=== PATIENT | male | born 1965 | race Caucasian/White ===

== ENCOUNTER 2016-12-19 21:34 | Emergency (ER) | payer OTHER ==
[2016-12-19] MEDS ORDERED: MORPHINE SULFATE 4 MG INJ IV ONE (21:50)
[2016-12-19] MEDS ORDERED: Sodium Chloride 0.9% 1000 ML 1,000 ML IV STA (21:50)
[2016-12-19] MEDS ORDERED: Zofran 4 MG/2 ML VIAL IV ONE (21:50)
[2016-12-19] MEDS ORDERED: Pepcid 20 MG VIAL IV ONE ×2 (21:50→21:59)
[2016-12-19] MEDS ORDERED: BENADRYL 50 MG/ML IV ONE (21:50)
[2016-12-19] MEDS ORDERED: PROTONIX 40 MG IV IV ONE ×2 (21:50→21:59)
--- NOTE | 2016-12-19 21:50 | ERPHSYRPT ---
- History of Present Illness Time Seen by Provider: 12/19/16 21:45 Historian: patient Exam Limitations: no limitations Physician History: 51 yr old male with back pain for three days and abd pain for one day ; no vomiting, no trauma, no diarrhea , also unable to urinate no hx prior surgeries has general abd tenderness , distension, and increased bowel sounds on exam.no prior prostate problemspt also reports left arm tingling earlier today none now , no CP now but will check EKG and trop. Timing/Duration: today Activities at Onset: none Quality: sharpness Abdominal Pain Onset Location: generalized abdomen, flank Pain Radiation: flank, back Severity of Pain-Max: moderate Severity of Pain-Current: moderate Modifying Factors: Improves With: nothing Previous symptoms: no prior history Allergies/Adverse Reactions: No Known Drug Allergies Allergy (Verified 12/19/16 21:50) Home Medications: No Home Meds 1 ea UD 12/19/16 [History] - Review of Systems Constitutional: No Fever, No Chills Eyes: No Symptoms Ears, Nose, & Throat: No Symptoms Respiratory: No Cough, No Dyspnea Cardiac: No Chest Pain, No Edema, No Syncope Abdominal/Gastrointestinal: Abdominal Pain, Nausea, No Vomiting, No Diarrhea Genitourinary Symptoms: Dysuria, Urgency, Urinary Retention Musculoskeletal: Back Pain, No Neck Pain Skin: No Rash Neurological: No Dizziness, No Focal Weakness, No Sensory Changes Psychological: No Symptoms Endocrine: No Symptoms Hematologic/Lymphatic: No Symptoms Immunological/Allergic: No Symptoms All Other Systems: Reviewed and Negative - Past Medical History Pertinent Past Medical History: Yes Neurological History: No Pertinent History Cardiac History: Hypertension Respiratory History: No Pertinent History Endocrine Medical History: No Pertinent History Musculoskeletal History: Osteoarthritis Other Medical History: psoriasis - Past Surgical History Past Surgical History: No - Nursing Vital Signs Nursing Vital Signs: Initial Vital Signs Temperature 98.3 F Temperature Source Oral Pulse Rate 104 Respiratory Rate 16 Blood Pressure [Right Arm] 123/62 Pain Intensity 6 - Physical Exam General Appearance: no apparent distress, alert Eye Exam: PERRL/EOMI, eyes nml inspection Ears, Nose, Throat Exam: normal ENT inspection, pharynx normal, moist mucous membranes Neck Exam: normal inspection, non-tender, supple, full range of motion Respiratory Exam: normal breath sounds, lungs clear, No respiratory distress Cardiovascular Exam: regular rate/rhythm, normal heart sounds Gastrointestinal/Abdomen Exam: tenderness, distention, guarding, No mass, No rebound, No hernia Rectal Exam: deferred Back Exam: normal inspection, normal range of motion, No CVA tenderness, No vertebral tenderness Extremity Exam: normal inspection, normal range of motion, pelvis stable Neurologic Exam: alert, oriented x 3, cooperative, normal mood/affect, nml cerebellar function, sensation nml, No motor deficits Skin Exam: normal color, warm, dry SpO2 Interpretation: normal Oxygen Delivery: Room Air - Course Nursing assessment & vital signs reviewed: Yes EKG Interpreted by Me: Sinus Rhythm, NORMAL AXIS, Non-specific ST Changes Ordered Tests: Active Orders 24 hr Category Date Time Status Cath for Specimen-Straight STAT Care 12/19/16 21:50 Active EKG-ER Only STAT Care 12/19/16 21:50 Active IV Insertion STAT Care 12/19/16 21:50 Active IV Insertion-2nd Peripheral STAT Care 12/19/16 22:23 Active NPO (ED) STAT Care 12/19/16 21:50 Active Pulse Oximetry (ED) STAT Care 12/19/16 22:23 Active ABDOMEN AND PELVIS W/0 CONTRAS [CT] Stat Exams 12/19/16 21:51 Taken CHEST 1 VIEW (PORTABLE) Stat Exams 12/19/16 23:24 Taken AMYLASE Stat Lab 12/19/16 22:03 Completed BLOOD CULTURE Stat Lab 12/19/16 22:44 Received CBC W DIFF Stat Lab 12/19/16 22:03 Completed CK-Creatinine Phosphokinase Stat Lab 12/19/16 21:50 Completed CMP Stat Lab 12/19/16 22:03 Completed CULTURE,URINE Stat Lab 12/19/16 22:28 Received LIPASE Stat Lab 12/19/16 22:03 Completed Lactic Acid Stat Lab 12/19/16 22:00 Completed Occult Blood,Stool Other Stat Lab 12/19/16 22:15 Completed TROPONIN Stat Lab 12/19/16 22:03 Completed UA W/ MICROSCOPIC Stat Lab 12/19/16 22:07 Completed VENOUS BLOOD GAS Stat Lab 12/19/16 22:23 Completed Medication Summary Generic Name Dose Route Start Last Admin Trade Name Freq PRN Reason Stop Dose Admin Sodium Chloride 1,000 mls @ 999 mls/hr 12/19/16 22:30 12/19/16 23:17 Sodium Chloride 0.9% 1000 Ml IV 12/20/16 01:30 999 mls/hr .Q1H1M JORGE Administration Discontinued Medications Generic Name Dose Route Start Last Admin Trade Name Denny PRN Reason Stop Dose Admin Diphenhydramine HCl 25 mg 12/19/16 21:50 12/19/16 22:10 Benadryl 50 Mg/Ml IV 12/19/16 21:51 25 mg STAT ONE Administration Diphenhydramine HCl Confirm 12/19/16 21:59 Benadryl 50 Mg/Ml Administered 12/19/16 22:00 Dose 50 mg .ROUTE .STK-MED ONE Famotidine 20 mg 12/19/16 21:50 12/19/16 22:09 Pepcid 20 Mg Vial IV 12/19/16 21:51 20 mg STAT ONE Administration Famotidine Confirm 12/19/16 21:59 Pepcid 20 Mg Vial Administered 12/19/16 22:00 Dose 20 mg IV .STK-MED ONE Sodium Chloride 1,000 mls @ 999 mls/hr 12/19/16 21:50 12/19/16 22:04 Sodium Chloride 0.9% 1000 Ml IV 12/19/16 22:50 999 mls/hr .Q1H1M STA Administration Sodium Chloride Confirm 12/19/16 21:59 Sodium Chloride 0.9% 1000 Ml Administered 12/19/16 22:00 Dose 1,000 mls @ ud .ROUTE .STK-MED ONE Metronidazole 500 mg in 100 mls @ 200 mls/hr 12/19/16 22:21 12/19/16 23:17 Flagyl 500 Mg Ivpb IV 12/19/16 22:50 200 mls/hr STAT STA Administration Meropenem 1 g/ Sodium Chloride 100 mls @ 200 mls/hr 12/19/16 22:21 12/19/16 22:40 IV 12/19/16 22:50 200 mls/hr STAT ONE Administration Sodium Chloride Confirm 12/19/16 22:25 Sodium Chloride 0.9% 100 Ml Ivpb Administered 12/19/16 22:26 Dose 100 mls @ ud IV .STK-MED ONE Metronidazole Confirm 12/19/16 22:25 Flagyl 500 Mg Ivpb Administered 12/19/16 22:26 Dose 500 mg in 100 mls @ ud IV .STK-MED ONE Meropenem Confirm 12/19/16 22:25 Merrem 1 Gm Administered 12/19/16 22:26 Dose 1 g IV .STK-MED ONE Morphine Sulfate 4 mg 12/19/16 21:50 12/19/16 22:12 Morphine Sulfate 4 Mg Inj IV 12/19/16 21:51 4 mg STAT ONE Administration Morphine Sulfate Confirm 12/19/16 21:59 Morphine Sulfate 4 Mg Inj Administered 12/19/16 22:00 Dose 4 mg .ROUTE .STK-MED ONE Ondansetron HCl 4 mg 12/19/16 21:50 12/19/16 22:06 Zofran 4 Mg/2 Ml Vial IV 12/19/16 21:51 4 mg STAT ONE Administration Ondansetron HCl Confirm 12/19/16 21:59 Zofran 4 Mg/2 Ml Vial Administered 12/19/16 22:00 Dose 4 mg .ROUTE .STK-MED ONE Pantoprazole Sodium 40 mg 12/19/16 21:50 12/19/16 22:08 Protonix 40 Mg Iv IV 12/19/16 21:51 40 mg STAT ONE Administration Pantoprazole Sodium Confirm 12/19/16 21:59 Protonix 40 Mg Iv Administered 12/19/16 22:00 Dose 40 mg IV .STK-MED ONE Lab/Rad Data: Laboratory Result Diagrams 12/19/16 22:03 12/19/16 22:03 Laboratory Results 12/19/16 12/19/16 12/19/16 Range/Units 22:23 22:15 22:07 WBC (4.0-10.5) K/mm3 RBC (4.1-5.6) M/mm3 Hgb (12.5-18.0) gm/dl Hct (42-50) % MCV (78-100) fl MCH (26-32) pg MCHC (32-36) g/dl RDW (11.5-14.0) % Plt Count (150-450) K/mm3 MPV (6-9.5) fl Gran % (36.0-66.0) % Lymphocytes % (24.0-44.0) % Monocytes % (0.0-12.0) % Eosinophils % (0.00-5.0) % Basophils % (0.0-0.4) % Basophils # (0-0.4) VBG pH 7.24 L* (7.32-7.42) VBG pCO2 at Pat Temp 49 (42-55) mm/Hg VBG pO2 at Pat Temp 23 L (25-40) mm/Hg VBG HCO3 21.0 L (22-28) meq/L VBG O2 Sat ([place]) 34.1 L (95-100) VBG Base Excess -6.8 L (-2.0-2.0) VBG Hemoglobin 16.8 VBG Carboxyhemoglobin 2.0 (0.0-6.9) % T HGB POC Potassium 5.6 H (3.5-5.1) Sodium (136-145) mEq/L Potassium (3.5-5.1) mEq/L Chloride (98-107) mEq/L Carbon Dioxide (21-32) mEq/L Anion Gap (5-15) MEQ/L BUN (9-20) mg/dL Creatinine (0.55-1.30) mg/dl Estimated GFR ML/MIN Glucose (70-110) MG/DL Lactic Acid (0.4-2.0) Calcium (8.5-10.1) mg/dL Total Bilirubin (0.2-1.0) mg/dL AST (15-37) U/L ALT (12-78) U/L Alkaline Phosphatase (46-116) U/L Creatine Kinase (39-308) U/L Troponin I (0.000-0.056) ng/ml Serum Total Protein (6.4-8.2) gm/dL Albumin (3.4-5.0) g/dL Amylase (25-115) U/L Lipase (73-393) U/L Ur Collection Type CATH Urine Color YELLOW (YELLOW) Urine Appearance CLOUDY (CLEAR) Urine pH 5.0 (5-6) Ur Specific [place] 1.020 (1.005-1.025) Urine Protein 30 (Negative) Urine Ketones NEGATIVE (NEGATIVE) Urine Blood 250 (0-5) Awais/ul Urine Nitrite NEGATIVE (NEGATIVE) Urine Bilirubin SMALL (NEGATIVE) Urine Urobilinogen NORMAL (0-1) mg/dL Ur Leukocyte Esterase TRACE (NEGATIVE) Urine Microscopic RBC 0-2 (0-2) /HPF Urine Microscopic WBC 2-5 (0-5) /HPF Ur Epithelial Cells MODERATE (FEW) /HPF Urine Bacteria FEW (NEGATIVE) /HPF Hyaline Casts 0-2 (0-2) /LPF Urine Glucose 50 (NEGATIVE) mg/dL Stool Occult Blood POSITIVE (Negative) Specimen Received 12/19/16 2200 12/19/16 12/19/16 12/19/16 Range/Units 22:03 22:03 22:00 WBC 24.3 H (4.0-10.5) K/mm3 RBC 5.24 (4.1-5.6) M/mm3 Hgb 16.7 (12.5-18.0) gm/dl Hct 47.8 (42-50) % MCV 91.2 (78-100) fl MCH 31.9 (26-32) pg MCHC 34.9 (32-36) g/dl RDW 12.8 (11.5-14.0) % Plt Count 308 (150-450) K/mm3 MPV 12.7 H (6-9.5) fl Gran % 79.3 H (36.0-66.0) % Lymphocytes % 12.6 L (24.0-44.0) % Monocytes % 7.4 (0.0-12.0) % Eosinophils % 0.4 (0.00-5.0) % Basophils % 0.3 (0.0-0.4) % Basophils # 0.07 (0-0.4) VBG pH (7.32-7.42) VBG pCO2 at Pat Temp (42-55) mm/Hg VBG pO2 at Pat Temp (25-40) mm/Hg VBG HCO3 (22-28) meq/L VBG O2 Sat ([place]) (95-100) VBG Base Excess (-2.0-2.0) VBG Hemoglobin VBG Carboxyhemoglobin (0.0-6.9) % T HGB POC Potassium (3.5-5.1) Sodium 137 (136-145) mEq/L Potassium 5.5 H (3.5-5.1) mEq/L Chloride 100 (98-107) mEq/L Carbon Dioxide 21.1 (21-32) mEq/L Anion Gap 21.4 H (5-15) MEQ/L BUN 56 H (9-20) mg/dL Creatinine 6.14 H (0.55-1.30) mg/dl Estimated GFR 10 ML/MIN Glucose 190 H (70-110) MG/DL Lactic Acid 1.5 (0.4-2.0) Calcium 10.3 H (8.5-10.1) mg/dL Total Bilirubin 0.80 (0.2-1.0) mg/dL AST 31 (15-37) U/L ALT 40 (12-78) U/L Alkaline Phosphatase 95 (46-116) U/L Creatine Kinase (39-308) U/L Troponin I < 0.017 (0.000-0.056) ng/ml Serum Total Protein 8.4 H (6.4-8.2) gm/dL Albumin 5.0 (3.4-5.0) g/dL Amylase 59 (25-115) U/L Lipase 185 (73-393) U/L Ur Collection Type Urine Color (YELLOW) Urine Appearance (CLEAR) Urine pH (5-6) Ur Specific [place] (1.005-1.025) Urine Protein (Negative) Urine Ketones (NEGATIVE) Urine Blood (0-5) Awais/ul Urine Nitrite (NEGATIVE) Urine Bilirubin (NEGATIVE) Urine Urobilinogen (0-1) mg/dL Ur Leukocyte Esterase (NEGATIVE) Urine Microscopic RBC (0-2) /HPF Urine Microscopic WBC (0-5) /HPF Ur Epithelial Cells (FEW) /HPF Urine Bacteria (NEGATIVE) /HPF Hyaline Casts (0-2) /LPF Urine Glucose (NEGATIVE) mg/dL Stool Occult Blood (Negative) Specimen Received 12/19/16 Range/Units 21:50 WBC (4.0-10.5) K/mm3 RBC (4.1-5.6) M/mm3 Hgb (12.5-18.0) gm/dl Hct (42-50) % MCV (78-100) fl MCH (26-32) pg MCHC (32-36) g/dl RDW (11.5-14.0) % Plt Count (150-450) K/mm3 MPV (6-9.5) fl Gran % (36.0-66.0) % Lymphocytes % (24.0-44.0) % Monocytes % (0.0-12.0) % Eosinophils % (0.00-5.0) % Basophils % (0.0-0.4) % Basophils # (0-0.4) VBG pH (7.32-7.42) VBG pCO2 at Pat Temp (42-55) mm/Hg VBG pO2 at Pat Temp (25-40) mm/Hg VBG HCO3 (22-28) meq/L VBG O2 Sat ([place]) (95-100) VBG Base Excess (-2.0-2.0) VBG Hemoglobin VBG Carboxyhemoglobin (0.0-6.9) % T HGB POC Potassium (3.5-5.1) Sodium (136-145) mEq/L Potassium (3.5-5.1) mEq/L Chloride (98-107) mEq/L Carbon Dioxide (21-32) mEq/L Anion Gap (5-15) MEQ/L BUN (9-20) mg/dL Creatinine (0.55-1.30) mg/dl Estimated GFR ML/MIN Glucose (70-110) MG/DL Lactic Acid (0.4-2.0) Calcium (8.5-10.1) mg/dL Total Bilirubin (0.2-1.0) mg/dL AST (15-37) U/L ALT (12-78) U/L Alkaline Phosphatase (46-116) U/L Creatine Kinase 774 H (39-308) U/L Troponin I (0.000-0.056) ng/ml Serum Total Protein (6.4-8.2) gm/dL Albumin (3.4-5.0) g/dL Amylase (25-115) U/L Lipase (73-393) U/L Ur Collection Type Urine Color (YELLOW) Urine Appearance (CLEAR) Urine pH (5-6) Ur Specific [place] (1.005-1.025) Urine Protein (Negative) Urine Ketones (NEGATIVE) Urine Blood (0-5) Awais/ul Urine Nitrite (NEGATIVE) Urine Bilirubin (NEGATIVE) Urine Urobilinogen (0-1) mg/dL Ur Leukocyte Esterase (NEGATIVE) Urine Microscopic RBC (0-2) /HPF Urine Microscopic WBC (0-5) /HPF Ur Epithelial Cells (FEW) /HPF Urine Bacteria (NEGATIVE) /HPF Hyaline Casts (0-2) /LPF Urine Glucose (NEGATIVE) mg/dL Stool Occult Blood (Negative) Specimen Received - Progress Progress: improved, re-examined Progress Note: 12/19/16 23:57 Discussed with pt and family and Khanh Reyes Hospitalist at [facility] and they accept transfer for renal tx and w/u of sepsis; 12/20/16 00:00 the pt was arranged for transfer prior to second lactaTE, but first lactate was normal. ; but HR improved some with IVF to low 100s. 12/20/16 00:01 pt required second IV, cultures and obs in ER for critical care as was tachy. Discussed with Dr.: Other (khanh reyes at [facility]) Will see patient in: hospital (full admit) Counseled pt/family regarding: lab results, diagnosis, need for follow-up, rad results - Departure Time of Disposition: 23:58 Departure Disposition: Transfer Clinical Impression: Renal failure, Sepsis Condition: Good Critical Care Time: Yes Critical Care Time(excluding separately billable procedures): 30-74 minutes
[2016-12-19] MEDS ORDERED: MORPHINE SULFATE 4 MG INJ ONE (21:59)
[2016-12-19] MEDS ORDERED: Sodium Chloride 0.9% 1000 ML 1,000 ML ONE (21:59)
[2016-12-19] MEDS ORDERED: BENADRYL 50 MG/ML ONE (21:59)
[2016-12-19] MEDS ORDERED: Zofran 4 MG/2 ML VIAL ONE (21:59)
[2016-12-19 22:07] LABS: BASOPHIL % 0.3 % (0.0-0.4); Eosinophil % 0.4 % (0.00-5.0); Granulocytes % 79.3 % (36.0-66.0); Lymphocytes % 12.6 % (24.0-44.0); Mean Cell Volume 91.2 fl (78-100); Mean Corpuscular Hemoglobin 31.9 pg (26-32); Mean Platelet Volume 12.7 fl (6-9.5); Monocytes % 7.4 % (0.0-12.0); Platelet Count 308 K/mm3 (150-450); Red Blood Count 5.24 M/mm3 (4.1-5.6); Red Cell Distribution Width 12.8 % (11.5-14.0); White Blood Count 24.3 K/mm3 (4.0-10.5)
[2016-12-19 22:14] LABS: Collection Type CATH
[2016-12-19 22:15] LABS: ADD URINE CULTURE? NO (NO); Bacteria FEW /HPF (NEGATIVE); Bilirubin SMALL (NEGATIVE); Blood 250 Ery/ul (0-5); COMPLETE URINE MICROSCOPIC? YES; Epithelial Cells MODERATE /HPF (FEW); Glucose 50 mg/dL (NEGATIVE); Hyaline Casts 0-2 /LPF (0-2); Leukocyte Esterase TRACE (NEGATIVE)
[2016-12-19 22:19] LABS: ALKALINE PHOSPHATASE 95 U/L (46-116); ANION GAP 21.4 MEQ/L (5-15); BLOOD UREA NITROGEN 56 mg/dL (9-20); CHLORIDE 100 mEq/L (98-107); Carbon Dioxide 21.1 mEq/L (21-32); Glucose 190 MG/DL (70-110); LIPASE 185 U/L (73-393); Potassium 5.5 mEq/L (3.5-5.1); SGOT/AST 31 U/L (15-37); SGPT/ALT 40 U/L (12-78); SODIUM 137 mEq/L (136-145); TROPONIN < 0.017 ng/ml (0.000-0.056); Total Protein 8.4 gm/dL (6.4-8.2)
[2016-12-19] MEDS ORDERED: FLAGYL 500 MG IVPB 500 MG/100 ML BAG IV STA (22:21)
[2016-12-19] MEDS ORDERED: Merrem 1 GM 1 G in Sodium Chloride 100ML MINI-BAG PLUS 100 ML IV ONE (22:21)
[2016-12-19] MEDS ORDERED: FLAGYL 500 MG IVPB 500 MG/100 ML BAG IV ONE (22:25)
[2016-12-19] MEDS ORDERED: Sodium Chloride 0.9% 100 ML IVPB 100 ML IV ONE (22:25)
[2016-12-19] MEDS ORDERED: Merrem 1 GM IV ONE (22:25)
[2016-12-19] MEDS ORDERED: Sodium Chloride 0.9% 1000 ML 1,000 ML IV SCH (22:30)
[2016-12-19 22:35] LABS: VBG BASE EXCESS -6.8 (-2.0-2.0); VBG HEMOGLOBIN 16.8; VBG O2 SATURATION 34.1 (95-100); VBG POTASSIUM 5.6 (3.5-5.1); VBG pH 7.24 (7.32-7.42)
[2016-12-19] MEDS ORDERED: Sodium Chloride 0.9% 1000 ML 2,000 ML ONE (23:15)
[2016-12-19] MEDS ORDERED: Sodium Chloride 0.9% 1000 ML 1,000 ML IV ONE (23:15)
[2016-12-20 00:56] VITALS: BP 108/68; PULSE 96; O2SAT 95
--- NOTE | 2016-12-20 09:42 | XRAY ---
Indication: Sepsis. Comparison: None Portable chest demonstrates normal heart and lungs. Bony thorax intact.
--- NOTE | 2016-12-20 09:43 | XRAY ---
Indication: Lower abdominal and right flank pain. Difficulty urinating. Multiple contiguous axial images obtained through the abdomen and pelvis without contrast using renal stone protocol. Comparison: None Lung bases demonstrates minimal bibasilar dependent atelectasis. Heart is not enlarged. Partially visualized subcarinal and left infrahilar calcified nodes. 1 cm distal paraesophageal lymph node. No renal calculus or evidence for objective uropathy in either system. Noncontrasted stomach and bowel loops appear nonobstructed. Minimal scattered colonic diverticulosis without diverticulitis. Normal appendix. No free fluid/air. Solitary calcified splenic granuloma. Remaining liver, gallbladder, pancreas, spleen, adrenal glands, kidneys, ureters, and bladder appear unremarkable for noncontrast exam. Mild aortoiliac calcifications without AAA. Osseous structures intact with mild degenerative changes throughout the spine. Impression: 1. Negative for renal calculus or evidence for obstructive uropathy. 2. Minimal colonic diverticulosis without diverticulitis. 3. No acute intra-abdominal/pelvic abnormalities on this noncontrast exam. 4. Evidence for old granulomatous disease. Comment: Preliminary interpretation was made by [facility]. No discrepancy. CTDI 27.71
== END 2016-12-20 00:56 | disposition short-term general hospital (02) ==
LOC: ED 21:34
DX: N19 Unspecified kidney failure (principal); A41.9 Sepsis, unspecified organism
CPT/HCPCS: 36000; 36415; 71010; 74176; 80053; 81000; 82150; 82272; 82550; 82805; 83605; 83690; 84484; 85025; 87040; 87086; 93005; 96360; 96365; 96366; 96367; 96374; 96375; 99285; J1200; J2270; J2405; P9612

== ENCOUNTER 2017-05-30 18:09 | Emergency (ER) | payer OTHER ==
[2017-05-30] MEDS ORDERED: Zofran 4 MG/2 ML VIAL IV ONE (18:26)
[2017-05-30] MEDS ORDERED: Hydromorphone 1 mg/ml Ampule IV ONE (18:26)
[2017-05-30] MEDS ORDERED: Sodium Chloride 0.9% 1000 ML 1,000 ML IV STA (18:26)
--- NOTE | 2017-05-30 18:30 | ERPHSYRPT ---
- History of Present Illness Historian: patient Exam Limitations: no limitations Patient Subjective Stated Complaint: PT STATES HIS STOMACH HAS BEEN HURTING OFF AND ON ALL DAY, ALSO REPORTS FLANK PAIN AND TROUBLE URINATING. STATES HE CAN PEE BUT IT TAKES A WHILE TO START HIS STREAM. PT REPORTS KIDNEY PROBLEMS AND IS CONCERNED THAT HIS KIDNEYS ARE "SHUTTING DOWN". REPORTS HE DRANK SOME RUM LAST NIGHT AND IS WORRIED THAT MIGHT BE RELATED TO HIS S/S. Triage Nursing Assessment: PT IS AOX3, PUPILS PERRL, RESPS EASY AND NON LABORED , LUNGS SOUND CLEAR AND EQUAL THROUGHOUT, RADIAL PULSES BOUNDING, ABD IS FIRM AND ROUND, TENDER WITH PALP TO THE RLQ, ABD PAIN RADIATES TO BILAT FLANK, DIFFCULTY UPON URINATION - TAKES LONG TO START STREAM OF URINE, PT SKIN APPEARS RAQUEL AND TIGHT. PAIN WORSENED WITH POSITION CHANGE - DIFFICULTY FINDING POSITION OF COMFORT. PT RESTLESS. Hx Tetanus, Diphtheria Vaccination/Date Given: No Hx Influenza Vaccination/Date Given: No Hx Pneumococcal Vaccination/Date Given: No Immunizations Up to Date: Yes <KATALINA COLEMAN - Last Filed: 05/30/17 18:42> <ERICKA NOE - Last Filed: 05/30/17 19:59> - History of Present Illness Time Seen by Provider: 05/30/17 18:27 Physician History: mild to mod off and on lower abdominal cramps rad to back today, no injury, no fever, no NV, pt is ambulatory (KATALINA COLEMAN) Allergies/Adverse Reactions: No Known Drug Allergies Allergy (Verified 12/19/16 21:50) Home Medications: No Home Meds [No Home Meds] 1 [facility] 12/19/16 [History] - Review of Systems Constitutional: No Fever Eyes: No Symptoms Ears, Nose, & Throat: No Symptoms Respiratory: No Symptoms Cardiac: No Symptoms Abdominal/Gastrointestinal: Abdominal Pain, No Vomiting Genitourinary Symptoms: Hesitancy Musculoskeletal: Back Pain Skin: No Symptoms Neurological: No Dizziness Psychological: No Symptoms <KATALINA COLEMAN - Last Filed: 05/30/17 18:42> - Past Medical History Pertinent Past Medical History: Yes Neurological History: No Pertinent History Cardiac History: Hypertension Respiratory History: No Pertinent History Endocrine Medical History: No Pertinent History Musculoskeletal History: Osteoarthritis History: Renal Disease Other Medical History: psoriasis - Past Surgical History Past Surgical History: No - Social History Smoking Status: Current every day smoker Drug Use: none Patient Lives Alone: No <KATALINA COLEMAN - Last Filed: 05/30/17 18:42> - Physical Exam General Appearance: no apparent distress Eye Exam: PERRL/EOMI Ears, Nose, Throat Exam: moist mucous membranes Neck Exam: normal inspection Respiratory Exam: normal breath sounds Cardiovascular Exam: bradycardia Gastrointestinal/Abdomen Exam: soft, tenderness, No rebound Back Exam: muscle spasm, No vertebral tenderness Extremity Exam: normal range of motion Neurologic Exam: alert, oriented x 3, cooperative Skin Exam: normal color, warm, dry SpO2 Interpretation: normal SpO2: 97 Oxygen Delivery: Room Air <KATALINA COLEMAN - Last Filed: 05/30/17 18:42> - Nursing Vital Signs Nursing Vital Signs: Initial Vital Signs Temperature 97.9 F 05/30/17 18:13 Pulse Rate 125 H 05/30/17 18:13 Respiratory Rate 20 05/30/17 18:13 Blood Pressure 158/91 05/30/17 18:13 O2 Sat by Pulse Oximetry 97 05/30/17 18:13 Pain Scale Pain Intensity 5 - Course EKG Interpreted by Me: RATE, Sinus Rhythm, Sinus Tach, NORMAL AXIS, NORMAL INTERVALS, NORMAL QRS, NORMAL ST-T - CT Exams Abdomen/Pelvis CT Interpretation: Tele-radiologist Report, appendicitis (thick-walled appendix with adjacent fat-stranding per Dr Jauregui) <ERICKA NOE - Last Filed: 05/30/17 19:59> Ordered Tests: Active Orders 24 hr Category Date Time Status Budder STAT Care 05/30/17 18:44 Active EKG-ER Only STAT Care 05/30/17 18:43 Active IV Insertion STAT Care 05/30/17 18:26 Active IV Insertion-2nd Peripheral STAT Care 05/30/17 18:43 Active Pulse Oximetry (ED) STAT Care 05/30/17 18:43 Active ABDOMEN AND PELVIS W/0 CONTRAS [CT] Stat Exams 05/30/17 18:26 Taken CHEST 1 VIEW (PORTABLE) Stat Exams 05/30/17 18:43 Taken BLOOD CULTURE Stat Lab 05/30/17 19:25 Received CBC W DIFF Stat Lab 05/30/17 18:20 Completed CMP Stat Lab 05/30/17 18:20 Completed CULTURE,URINE Stat Lab 05/30/17 18:35 Received LIPASE Stat Lab 05/30/17 18:20 Completed Lactic Acid Stat Lab 05/30/17 18:30 Results PROTIME WITH INR Stat Lab 05/30/17 18:30 Completed PTT Stat Lab 05/30/17 18:30 Completed UA W/RFX UR CULTURE Stat Lab 05/30/17 18:35 Completed Urine Triage Profile Stat Lab 05/30/17 18:35 Completed VENOUS BLOOD GAS Stat Lab 05/30/17 18:43 Completed Medication Summary Generic Name Dose Route Start Last Admin Trade Name Freq PRN Reason Stop Dose Admin Sodium Chloride 1,000 mls @ 999 mls/hr 05/30/17 18:45 05/30/17 19:13 Sodium Chloride 0.9% 1000 Ml IV 05/30/17 21:45 999 mls/hr .Q1H1M JORGE Administration Discontinued Medications Generic Name Dose Route Start Last Admin Trade Name Freq PRN Reason Stop Dose Admin Hydromorphone HCl 1 mg 05/30/17 18:26 05/30/17 18:49 Hydromorphone 1 Mg/Ml Ampule IV 05/30/17 18:27 1 mg STAT ONE Administration Hydromorphone HCl Confirm 05/30/17 18:32 Hydromorphone 1 Mg/Ml Ampule Administered 05/30/17 18:33 Dose 1 mg .ROUTE .STK-MED ONE Sodium Chloride 1,000 mls @ 999 mls/hr 05/30/17 18:26 05/30/17 18:46 Sodium Chloride 0.9% 1000 Ml IV 05/30/17 19:26 999 mls/hr .Q1H1M STA Administration Sodium Chloride Confirm 05/30/17 18:32 Sodium Chloride 0.9% 1000 Ml Administered 05/30/17 18:33 Dose 1,000 mls @ ud .ROUTE .STK-MED ONE Piperacillin Sod/Tazobactam Sod 3.375 gm in 100 mls @ 200 mls/hr 05/30/17 18: 43 05/30/17 18:58 Zosyn 3.375gm/100 Ml D5w IV 05/30/17 19:12 200 mls/hr STAT STA Administration Piperacillin Sod/Tazobactam Sod Confirm 05/30/17 18:54 Zosyn 3.375gm/100 Ml D5w Administered 05/30/17 18:55 Dose 3.375 gm in 100 mls @ ud IV .STK-MED ONE Ondansetron HCl 4 mg 05/30/17 18:26 05/30/17 18:48 Zofran 4 Mg/2 Ml Vial IV 05/30/17 18:27 4 mg STAT ONE Administration Ondansetron HCl Confirm 05/30/17 18:32 Zofran 4 Mg/2 Ml Vial Administered 05/30/17 18:33 Dose 4 mg .ROUTE .STK-MED ONE Lab/Rad Data: Laboratory Result Diagrams 05/30/17 18:20 05/30/17 18:20 Laboratory Results 05/30/17 05/30/17 05/30/17 Range/Units 18:43 18:35 18:35 WBC (4.0-10.5) K/mm3 RBC (4.1-5.6) M/mm3 Hgb (12.5-18.0) gm/dl Hct (42-50) % MCV (78-100) fl MCH (26-32) pg MCHC (32-36) g/dl RDW (11.5-14.0) % Plt Count (150-450) K/mm3 MPV (6-9.5) fl Gran % (36.0-66.0) % Lymphocytes % (24.0-44.0) % Monocytes % (0.0-12.0) % Eosinophils % (0.00-5.0) % Basophils % (0.0-0.4) % Basophils # (0-0.4) INR (0.8-3.0) APTT (24.1-36.1) SECONDS VBG pH 7.26 L (7.32-7.42) VBG pCO2 at Pat Temp 54 (42-55) mm/Hg VBG pO2 at Pat Temp 18 L (25-40) mm/Hg VBG HCO3 24.2 (22-28) meq/L VBG O2 Sat ([place]) 34.6 L (95-100) VBG Base Excess -3.8 L (-2.0-2.0) VBG Hemoglobin 16.4 VBG Carboxyhemoglobin 4.9 (0.0-6.9) % T HGB POC Potassium 4.4 (3.5-5.1) Sodium (136-145) mEq/L Potassium (3.5-5.1) mEq/L Chloride (98-107) mEq/L Carbon Dioxide (21-32) mEq/L Anion Gap (5-15) MEQ/L BUN (9-20) mg/dL Creatinine (0.55-1.30) mg/dl Estimated GFR ML/MIN Glucose (70-110) MG/DL Lactic Acid (0.4-2.0) Calcium (8.5-10.1) mg/dL Total Bilirubin (0.2-1.0) mg/dL AST (15-37) U/L ALT (12-78) U/L Alkaline Phosphatase (46-116) U/L Serum Total Protein (6.4-8.2) gm/dL Albumin (3.4-5.0) g/dL Lipase (73-393) U/L Ur Collection Type CLEAN CATCH Urine Color ORANGE (YELLOW) Urine Appearance CLEAR (CLEAR) Urine pH 6.5 (5-6) Ur Specific Rudolph 1.020 (1.005-1.025) Urine Protein NEGATIVE (Negative) Urine Ketones NEGATIVE (NEGATIVE) Urine Blood NEGATIVE (0-5) Awais/ul Urine Nitrite NEGATIVE (NEGATIVE) Urine Bilirubin NEGATIVE (NEGATIVE) Urine Urobilinogen NORMAL (0-1) mg/dL Ur Leukocyte Esterase NEGATIVE (NEGATIVE) Urine Culture Reflexed NO (NO) Urine Glucose NEGATIVE (NEGATIVE) mg/dL Urine Opiates Level NEG. (NEGATIVE) Ur Methadone NEG. (NEGATIVE) Urine Barbiturates NEG. (NEGATIVE) Ur Phencyclidine (PCP) NEG. (NEGATIVE) Urine Amphetamine POS. (NEGATIVE) U Benzodiazepine Level POS. (NEGATIVE) Urine Cocaine NEG. (NEGATIVE) Urine Marijuana (THC) POS. (NEGATIVE) Specimen Received 05/30/17 1835 05/30/17 05/30/17 05/30/17 Range/Units 18:30 18:30 18:20 WBC (4.0-10.5) K/mm3 RBC (4.1-5.6) M/mm3 Hgb (12.5-18.0) gm/dl Hct (42-50) % MCV (78-100) fl MCH (26-32) pg MCHC (32-36) g/dl RDW (11.5-14.0) % Plt Count (150-450) K/mm3 MPV (6-9.5) fl Gran % (36.0-66.0) % Lymphocytes % (24.0-44.0) % Monocytes % (0.0-12.0) % Eosinophils % (0.00-5.0) % Basophils % (0.0-0.4) % Basophils # (0-0.4) INR 1.05 (0.8-3.0) APTT 24.1 (24.1-36.1) SECONDS VBG pH (7.32-7.42) VBG pCO2 at Pat Temp (42-55) mm/Hg VBG pO2 at Pat Temp (25-40) mm/Hg VBG HCO3 (22-28) meq/L VBG O2 Sat ([place]) (95-100) VBG Base Excess (-2.0-2.0) VBG Hemoglobin VBG Carboxyhemoglobin (0.0-6.9) % T HGB POC Potassium (3.5-5.1) Sodium 138 (136-145) mEq/L Potassium 4.2 (3.5-5.1) mEq/L Chloride 100 (98-107) mEq/L Carbon Dioxide 24.2 (21-32) mEq/L Anion Gap 18.4 H (5-15) MEQ/L BUN 23 H (9-20) mg/dL Creatinine 1.71 H (0.55-1.30) mg/dl Estimated GFR 45 ML/MIN Glucose 229 H (70-110) MG/DL Lactic Acid 5.5 H (0.4-2.0) Calcium 9.1 (8.5-10.1) mg/dL Total Bilirubin 1.90 H (0.2-1.0) mg/dL AST 24 (15-37) U/L ALT 44 (12-78) U/L Alkaline Phosphatase 100 (46-116) U/L Serum Total Protein 7.5 (6.4-8.2) gm/dL Albumin 4.2 (3.4-5.0) g/dL Lipase 99 (73-393) U/L Ur Collection Type Urine Color (YELLOW) Urine Appearance (CLEAR) Urine pH (5-6) Ur Specific Rudolph (1.005-1.025) Urine Protein (Negative) Urine Ketones (NEGATIVE) Urine Blood (0-5) Awais/ul Urine Nitrite (NEGATIVE) Urine Bilirubin (NEGATIVE) Urine Urobilinogen (0-1) mg/dL Ur Leukocyte Esterase (NEGATIVE) Urine Culture Reflexed (NO) Urine Glucose (NEGATIVE) mg/dL Urine Opiates Level (NEGATIVE) Ur Methadone (NEGATIVE) Urine Barbiturates (NEGATIVE) Ur Phencyclidine (PCP) (NEGATIVE) Urine Amphetamine (NEGATIVE) U Benzodiazepine Level (NEGATIVE) Urine Cocaine (NEGATIVE) Urine Marijuana (THC) (NEGATIVE) Specimen Received 05/30/17 Range/Units 18:20 WBC 9.8 (4.0-10.5) K/mm3 RBC 5.01 (4.1-5.6) M/mm3 Hgb 15.9 (12.5-18.0) gm/dl Hct 47.0 (42-50) % MCV 93.8 (78-100) fl MCH 31.7 (26-32) pg MCHC 33.8 (32-36) g/dl RDW 12.4 (11.5-14.0) % Plt Count 246 (150-450) K/mm3 MPV 11.6 H (6-9.5) fl Gran % 90.3 H (36.0-66.0) % Lymphocytes % 8.1 L (24.0-44.0) % Monocytes % 0.8 (0.0-12.0) % Eosinophils % 0.5 (0.00-5.0) % Basophils % 0.3 (0.0-0.4) % Basophils # 0.03 (0-0.4) INR (0.8-3.0) APTT (24.1-36.1) SECONDS VBG pH (7.32-7.42) VBG pCO2 at Pat Temp (42-55) mm/Hg VBG pO2 at Pat Temp (25-40) mm/Hg VBG HCO3 (22-28) meq/L VBG O2 Sat ([place]) (95-100) VBG Base Excess (-2.0-2.0) VBG Hemoglobin VBG Carboxyhemoglobin (0.0-6.9) % T HGB POC Potassium (3.5-5.1) Sodium (136-145) mEq/L Potassium (3.5-5.1) mEq/L Chloride (98-107) mEq/L Carbon Dioxide (21-32) mEq/L Anion Gap (5-15) MEQ/L BUN (9-20) mg/dL Creatinine (0.55-1.30) mg/dl Estimated GFR ML/MIN Glucose (70-110) MG/DL Lactic Acid (0.4-2.0) Calcium (8.5-10.1) mg/dL Total Bilirubin (0.2-1.0) mg/dL AST (15-37) U/L ALT (12-78) U/L Alkaline Phosphatase (46-116) U/L Serum Total Protein (6.4-8.2) gm/dL Albumin (3.4-5.0) g/dL Lipase (73-393) U/L Ur Collection Type Urine Color (YELLOW) Urine Appearance (CLEAR) Urine pH (5-6) Ur Specific Rudolph (1.005-1.025) Urine Protein (Negative) Urine Ketones (NEGATIVE) Urine Blood (0-5) Awais/ul Urine Nitrite (NEGATIVE) Urine Bilirubin (NEGATIVE) Urine Urobilinogen (0-1) mg/dL Ur Leukocyte Esterase (NEGATIVE) Urine Culture Reflexed (NO) Urine Glucose (NEGATIVE) mg/dL Urine Opiates Level (NEGATIVE) Ur Methadone (NEGATIVE) Urine Barbiturates (NEGATIVE) Ur Phencyclidine (PCP) (NEGATIVE) Urine Amphetamine (NEGATIVE) U Benzodiazepine Level (NEGATIVE) Urine Cocaine (NEGATIVE) Urine Marijuana (THC) (NEGATIVE) Specimen Received <KATALINA COLEMAN - Last Filed: 05/30/17 18:42> - Progress Progress: pain not gone completely Discussed with : Ld Counseled pt/family regarding: lab results, diagnosis, rad results <ERICKA NOE - Last Filed: 05/30/17 19:59> - Progress Progress Note: 05/30/17 18:[address] Noe at 19:00 (KATALINA COLEMAN) 05/30/17 19:12 Pt care discussed and care accepted from Dr Coleman at 19:00. 05/30/17 19:35 Pt last ate about 11 hrs ago. (ERICKA NOE) <KATALINA COLEMAN - Last Filed: 05/30/17 18:42> - Departure Time of Disposition: 19:36 Departure Disposition: Observation (observation per Dr Jaffe for surgery.) Critical Care Time: No <ERICKA NOE - Last Filed: 05/30/17 19:59> - Departure Clinical Impression: Appendicitis, Sepsis Condition: Stable Referrals: ANTONELLA GONZALEZ [Primary Care Provider] -
[2017-05-30] MEDS ORDERED: Hydromorphone 1 mg/ml Ampule ONE (18:32)
[2017-05-30] MEDS ORDERED: Zofran 4 MG/2 ML VIAL ONE (18:32)
[2017-05-30] MEDS ORDERED: Sodium Chloride 0.9% 1000 ML 1,000 ML ONE ×3 (18:32→20:58)
[2017-05-30 18:33] LABS: BASOPHIL % 0.3 % (0.0-0.4); Eosinophil % 0.5 % (0.00-5.0); Granulocytes % 90.3 % (36.0-66.0); Lymphocytes % 8.1 % (24.0-44.0); Mean Cell Volume 93.8 fl (78-100); Mean Corpuscular Hemoglobin 31.7 pg (26-32); Mean Platelet Volume 11.6 fl (6-9.5); Monocytes % 0.8 % (0.0-12.0); Platelet Count 246 K/mm3 (150-450); Red Blood Count 5.01 M/mm3 (4.1-5.6); Red Cell Distribution Width 12.4 % (11.5-14.0); White Blood Count 9.8 K/mm3 (4.0-10.5)
[2017-05-30] MEDS ORDERED: Zosyn 3.375GM/100 Ml D5W 3.375 GM/100 ML IVPB IV STA (18:43)
[2017-05-30 18:44] LABS: Lactic Acid 5.5 (0.4-2.0)
[2017-05-30 18:45] LABS: Collection Type CLEAN CATCH
[2017-05-30 18:46] LABS: ADD URINE CULTURE? NO (NO); Bilirubin NEGATIVE (NEGATIVE); Blood NEGATIVE Ery/ul (0-5); COMPLETE URINE MICROSCOPIC? NO; Glucose NEGATIVE (NEGATIVE); Leukocyte Esterase NEGATIVE (NEGATIVE)
[2017-05-30 18:48] LABS: ALBUMIN 4.2 g/dL (3.4-5.0); ANION GAP 18.4 MEQ/L (5-15); BILIRUBIN,TOTAL 1.9 mg/dL (0.2-1.0); Carbon Dioxide 24.2 mEq/L (21-32); Potassium 4.2 mEq/L (3.5-5.1); Total Protein 7.5 gm/dL (6.4-8.2)
[2017-05-30 18:50] LABS: VBG BASE EXCESS -3.8 (-2.0-2.0); VBG CARBOXYHEMOGLOBIN 4.9 % T HGB (0.0-6.9); VBG HCO3- 24.2 meq/L (22-28); VBG HEMOGLOBIN 16.4; VBG O2 SATURATION 34.6 (95-100); VBG POTASSIUM 4.4 (3.5-5.1); VBG pH 7.26 (7.32-7.42)
[2017-05-30 18:52] LABS: INR 1.05 (0.8-3.0); PROTIME 11.7 SECONDS (8.83-12.87)
[2017-05-30 18:53] LABS: PTT 24.1 SECONDS (24.1-36.1)
[2017-05-30] MEDS ORDERED: Zosyn 3.375GM/100 Ml D5W 3.375 GM/100 ML IVPB IV ONE (18:54)
[2017-05-30] MEDS: Sodium Chloride 0.9% 1000 ML 1,000 ML IV SCH ×3 (19:13→22:07)
[2017-05-30] MEDS ORDERED: MORPHINE SULFATE 4 MG INJ IV ONE (21:52)
[2017-05-30 21:54] VITALS: BP 142/83; PULSE 114; O2SAT 95
[2017-05-30] MEDS ORDERED: MORPHINE SULFATE 10 MG/ML ONE (21:55)
[2017-05-30] MEDS ORDERED: MORPHINE SULFATE 4 MG INJ ONE (21:57)
--- NOTE | 2017-05-31 08:41 | XRAY ---
Indication: Lower abdominal pain. Multiple contiguous axial images obtained through the abdomen and pelvis without contrast as ordered. Comparison: December 19, 2016. Lung bases are clear. Heart is not enlarged. Noncontrasted stomach and bowel loops again appear nonobstructed. Appendix is now prominent up to 12-13 mm with mild periappendiceal stranding favoring acute appendicitis. No free fluid/air. Stable scattered colonic diverticulosis without diverticulitis. Solitary calcified splenic granuloma. Remaining liver, gallbladder, pancreas, spleen, adrenal glands, kidneys, ureters, and bladder appear unremarkable for noncontrast exam. Mild aortoiliac calcifications without AAA. Osseous structures intact with mild degenerative changes throughout the spine. Impression: 1. New CT findings favoring acute appendicitis. 2. Stable colonic diverticulosis. Comment: Preliminary interpretation was made by [facility]. No discrepancy. CT DI 23.41
--- NOTE | 2017-05-31 08:42 | XRAY ---
Indication: Possible sepsis. Comparison: December 19, 2016. Portable chest again demonstrates normal heart and lungs. Bony thorax intact.
--- NOTE | 2017-05-31 12:09 | HP ---
HISTORY OF PRESENT ILLNESS: The patient is a 51 year-old gentleman who took a Xanax and Vicodin after he had a long walk from [employer] [place] last night. He had abdominal pain on the right side that started earlier today. He denies any nausea or vomiting. He had persistent pain, a little bit of bloating so he came into the hospital. PAST MEDICAL HISTORY: Includes hypertension. I do believe he had an arm fracture before. Otherwise he just had sutures from some lacerations. He denies any prior abdominal surgery. LAB DATA AND TESTS: He was positive for marijuana, amphetamine, benzodiazepine on his UA. White blood cell count 9.8, hemoglobin 15.9. AST, ALT, alkaline phosphatase within normal limits. CT showed wall thickening with fat stranding around the appendix suggesting acute appendicitis per the radiologist. He does have some fatty infiltration in ascending and transverse colon and question whether some inflammatory bowel disease although the patient is obese. Otherwise gallbladder is unremarkable. Pancreas unremarkable. MEDICATIONS: He takes blood pressure pills, magnesium. It sounds like he took Xanax and Vicodin last night. ALLERGIES: NKDA. FAMILY HISTORY: Negative for inflammatory bowel disease or colon cancer. SOCIAL HISTORY: Half pack per day smoker, does chew tobacco also. Reports occasional alcohol use denies abuse. REVIEW OF SYSTEMS: Twelve systems reviewed per admission assessment. No chest pain or palpitations. He does have multiple tattoos. He denies any prior liver problems. Other systems negative or noncontributory as above and per preadmission questionnaire. PHYSICAL EXAMINATION: GENERAL: No acute distress. HEENT: Sclerae nonicteric. NECK: No JVD. CHEST: Equal excursion, nonlabored breathing. CVS: Regular rate and rhythm. ABDOMEN: Soft. There is some mild distention. He does have some tenderness on the right side with a little bit of guarding. No rebound. EXTREMITIES: No significant edema. NEURO: Alert, moving extremities grossly symmetrically. IMPRESSION: Acute right-side abdominal pain. White blood cell count not elevated. The physical exam findings and CT findings suggested possible acute appendicitis although other differential includes gastroenteritis, diverticulitis or inflammatory bowel disease. Either way given the CT findings with stranding around the appendix I feel he warrants diagnostic laparoscopy laparoscopic appendectomy possible open when OR time available. Risks and benefits explained in detail including but not limited to bleeding or infection, risk of trocar injury or hernia, small risk of bowel, bladder or blood vessel injury, small risk of subsequent intra-abdominal abscess or fistula formation possibly requiring percutaneous or open drainage even at a later date, general risk of anesthesia, deep venous thrombosis, pulmonary embolism or pneumonia, perioperative risk of aches, pains, bloating, constipation and/or loose stools possibly chronic in nature, risk of wound infection, risk of ileus or obstruction, risk of ongoing infection as well as possibility the appendix may be normal likely will remove incidentally to look for other etiology that might need taken care of surgically. He understands. If he did have inflammatory bowel disease he will need longer term medical management. Otherwise general risk of anesthesia, deep venous thrombosis, pulmonary embolism, pneumonia but not limited to. Will proceed with diagnostic laparoscopy with laparoscopic appendectomy possible open when OR time available.
== END 2017-05-30 22:05 | disposition short-term general hospital (02) ==
LOC: ED 18:09
DX: K37 Unspecified appendicitis (principal); A41.9 Sepsis, unspecified organism
CPT/HCPCS: 36000; 36415; 71010; 74176; 80053; 80307; 81002; 82805; 83605; 83690; 85025; 85610; 85730; 87040; 87086; 93005; 93041; 96360; 96361; 96365; 96374; 99285; J1170; J2270; J2405; J2543

== ENCOUNTER 2021-08-24 16:22 | Emergency (ER) | payer OTHER ==
[2021-08-24 16:54] LABS: Absolute Neutrophil Ct (ANC) 10.69 (1.4-6.9); Basophil (Absolute #) 0.06 (0-0.4); Eosinophil % 1.4 % (0.00-5.0); Eosinophil (Absolute #) 0.23 (0-0.5); Hematocrit 45.7 % (42-50); Hemoglobin 15.9 gm/dl (12.5-18.0); Lymphocyte (Absolute #) 3.81 (1.0-4.6); Lymphocytes % 23.9 % (24.0-44.0); Mean Cell Volume 94.2 fl (78-100); Mean Corpuscular Hemoglobin 32.8 pg (26-32); Mean Corpuscular Hgb Concent. 34.8 g/dl (32-36); Mean Platelet Volume 12.4 fl (7.5-11.0); Monocyte (Absolute #) 1.15 (0.0-1.3); Monocytes % 7.2 % (0.0-12.0); Neutrophil % 67.1 % (36.0-66.0); Platelet Count 213 K/mm3 (150-450); Red Blood Count 4.85 M/mm3 (4.1-5.6); Red Cell Distribution Width 11.9 % (11.5-14.0); White Blood Count 15.9 K/mm3 (4.0-10.5)
[2021-08-24 17:05] LABS: ALBUMIN 4.5 g/dL (3.5-5.0); ALKALINE PHOSPHATASE 96 U/L (38-126); ANION GAP 14.4 MEQ/L (5-15); BLOOD UREA NITROGEN 18 mg/dL (9-20); CHLORIDE 96 mmol/L (98-107); Calcium 9.6 mg/dL (8.4-10.2); Carbon Dioxide 30 mmol/L (22-30); Creatinine 1 1.02 mg/dL (0.66-1.25); EST GLOMERULAR FILTRATION RATE > 60.0 ML/MIN; Glucose 198 mg/dL (74-106); Potassium 5.2 mmol/L (3.5-5.1); SGOT/AST 54 U/L (17-59); SGPT/ALT 39 U/L (0-50); SODIUM 135 mmol/L (137-145); Total Protein 7.1 g/dL (6.3-8.2)
--- NOTE | 2021-08-24 17:13 | ERPHSYRPT ---
- History of Present Illness Time Seen by Provider: 08/24/21 17:07 Source: family, EMS Exam Limitations: clinical condition Patient Subjective Stated Complaint: "I fell off my ladder." Triage Nursing Assessment: Patient presented to [facility] with report of falling from a ladder with an estimated height of 12 ft. EMS reported that family witnessed a loss of consciousness for roughly 1 minute. EMS reported that the patient was alert upon their arrival. Patient presented alert et oriented x3 answering questions appropriately. Head atraumatic normocephalic. Pupils 4mm bilateral without nystagmus. Facial palpation without elicited pain. Oral mucosa pink/moist without broken teeth, bleeding, or obstruction. Neck supple without JVD or Subcutaneous air. Pain upon palpation over the midline cervical spine without palpable deformities. Symmetrical chest expansion. heart tones S1/S2 RRR. Pain with palpation over the anterior chest wall. No noted deformities, contusions, ecchymosis, or subcutaneous air. Upper extremities without de formities or injuries. peripheral pulses +3 bilateral. Lower extremities without injuries. Pulse, motor, and cirulcation intact. Patient did exhibit retrograde amnesia. Physician History: "I fell off my ladder." falling from a ladder with an estimated height of 12 ft. EMS reported that family witnessed a loss of consciousness for roughly 1 minute. EMS reported that the patient was alert upon their arrival. Occurred: just prior to arrival Reason for Fall: fell from height Injuries/Pain Location: head, neck, chest Loss of Consciousness: brief (seconds) Severity of Pain-Max: mild Severity of Pain-Current: mild Associated Symptoms (Fall): confusion, lightheadedness Allergies/Adverse Reactions: No Known Drug Allergies Allergy (Verified 08/24/21 16:23) Home Medications: Clonidine HCl [Clonidine HCl ER] 0.1 mg PO BID 08/24/21 [History] Metformin HCl 500 mg [Glucophage 500 MG] 500 mg PO BID 08/24/21 [History] Hx Tetanus, Diphtheria Vaccination/Date Given: No Hx Influenza Vaccination/Date Given: No Hx Pneumococcal Vaccination/Date Given: No Travel Risk - International Travel Have you traveled outside of the country in past 3 weeks: No - Coronavirus Screening Are you exhibiting any of the following symptoms?: No Close contact with a COVID-19 positive Pt in past 14-21 Days: No - Vaccine Status Have you recieved a Covid-19 vaccination: No - Review of Systems Constitutional: No Fever, No Chills Eyes: No Symptoms Ears, Nose, & Throat: No Symptoms Respiratory: No Cough, No Dyspnea Cardiac: Chest Pain, No Edema, No Syncope Abdominal/Gastrointestinal: No Abdominal Pain, No Nausea, No Vomiting, No Diarrhea Genitourinary Symptoms: No Dysuria Musculoskeletal: Neck Pain, Fall, No Back Pain Skin: No Rash Neurological: Dizziness, Headache, No Focal Weakness, No Sensory Changes Psychological: No Symptoms Endocrine: No Symptoms All Other Systems: Reviewed and Negative - Past Medical History Pertinent Past Medical History: Yes Neurological History: No Pertinent History Cardiac History: Hypertension Respiratory History: No Pertinent History Endocrine Medical History: No Pertinent History Musculoskeletal History: Osteoarthritis History: Renal Disease Other Medical History: psoriasis - Past Surgical History Past Surgical History: No - Social History Smoking Status: Current every day smoker Exposure to second hand smoke: No Drug Use: none Patient Lives Alone: No - Nursing Vital Signs Nursing Vital Signs: Initial Vital Signs Pulse Rate 69 08/24/21 16:22 Respiratory Rate 18 08/24/21 16:22 Blood Pressure 170/87 08/24/21 16:22 O2 Sat by Pulse Oximetry 97 08/24/21 16:22 Pain Scale Pain Intensity 5 - [place] Coma Score Best Eye Response ([place]): (4) open spontaneously Best Verbal Response ([place]): (5) oriented Best Motor Response ([place]): (6) obeys commands [place] Total: 15 - Physical Exam General Appearance: moderate distress, alert Head Injury: no evidence of injury Eye Exam: PERRL/EOMI ENT Exam: airway nml Neck Exam: normal inspection, No tenderness Respiratory/Chest Exam: normal breath sounds, No chest tenderness, No respiratory distress Cardiovascular Exam: normal heart sounds, regular rate/rhythm Gastrointestinal Exam: soft, No tenderness, No distention, No guarding, No ecchymosis Back Exam: normal inspection, No vertebral tenderness Extremity Exam: normal inspection, normal range of motion, pelvis stable, No deformities Neurologic Exam: alert, oriented x 3, cooperative, sensation nml, No motor deficits Skin Exam: normal color, warm, dry SpO2: 97 - Course Nursing assessment & vital signs reviewed: Yes - CT Exams Head CT Interpretation: Tele-radiologist Report (Parenchymal hemorrhage intracranial hemorrhage and subdural hemorrhage occipital fracture) Cervical Spine CT Interpretation: Tele-radiologist Report, No Fracture Chest CT Interpretation: Tele-radiologist Report (multiple rib fractures) Ordered Tests: Active Orders 24 hr Category Date Time Status IV Insertion ROUTINE Care 08/24/21 16:33 Active ABDOMEN WITHOUT CONTRAST [CT] Stat Exams 08/24/21 17:33 Ordered CERVICAL SPINE WO CONTRAST [CT] Stat Exams 08/24/21 16:56 Taken CHEST WITHOUT CONTRAST [CT] Routine Exams 08/24/21 16:46 Taken HEAD WITHOUT CONTRAST [CT] Stat Exams 08/24/21 16:26 Taken CBC W DIFF Stat Lab 08/24/21 16:50 Completed CMP Stat Lab 08/24/21 16:50 Completed Lab/Rad Data: Laboratory Result Diagrams 08/24/21 16:50 08/24/21 16:50 Laboratory Results 08/24/21 08/24/21 Range/Units 16:50 16:50 WBC 15.9 H (4.0-10.5) K/mm3 RBC 4.85 (4.1-5.6) M/mm3 Hgb 15.9 (12.5-18.0) gm/dl Hct 45.7 (42-50) % MCV 94.2 (78-100) fl MCH 32.8 H (26-32) pg MCHC 34.8 (32-36) g/dl RDW 11.9 (11.5-14.0) % Plt Count 213 (150-450) K/mm3 MPV 12.4 H (7.5-11.0) fl Gran % 67.1 H (36.0-66.0) % Eos # (Auto) 0.23 (0-0.5) Absolute Lymphs (auto) 3.81 (1.0-4.6) Absolute Monos (auto) 1.15 (0.0-1.3) Lymphocytes % 23.9 L (24.0-44.0) % Monocytes % 7.2 (0.0-12.0) % Eosinophils % 1.4 (0.00-5.0) % Basophils % 0.4 (0.0-0.4) % Absolute Granulocytes 10.69 H (1.4-6.9) Basophils # 0.06 (0-0.4) Sodium 135 L (137-145) mmol/L Potassium 5.2 H (3.5-5.1) mmol/L Chloride 96 L (98-107) mmol/L Carbon Dioxide 30 (22-30) mmol/L Anion Gap 14.4 (5-15) MEQ/L BUN 18 (9-20) mg/dL Creatinine 1.02 (0.66-1.25) mg/dL Estimated GFR > 60.0 ML/MIN Glucose 198 H (74-106) mg/dL Calcium 9.6 (8.4-10.2) mg/dL Total Bilirubin 0.70 (0.2-1.3) mg/dL AST 54 (17-59) U/L ALT 39 (0-50) U/L Alkaline Phosphatase 96 (38-126) U/L Serum Total Protein 7.1 (6.3-8.2) g/dL Albumin 4.5 (3.5-5.0) g/dL - Progress Progress: unchanged Progress Note: 08/24/21 17:15 Telemetry radiologist called and he reported that patient has a multiple intracranial parenchymal and sub dural hemorrhage as well as occipital bone fracture. 08/24/21 17:39 I contacted [facility] they advised patient to be transfer. There advise to do a CT abdomen and pelvis with and without contrast here but according to over radiology protocol we can only do without contrast which I talked to them and they agreed. We will make flying arrangements to [facility]. Counseled pt/family regarding: lab results, diagnosis, need for follow-up - Departure Departure Disposition: Transfer ([facility]) Clinical Impression: Intracranial hemorrhage concurrent with and due to complex wound of head, Subdural hem-brief coma Head injury with fracture of skull Qualifiers: Encounter type: initial encounter Fracture type: closed Qualified Code(s): S 02.91XA - Unspecified fracture of skull, initial encounter for closed fracture; S06.9X9A - Unspecified intracranial injury with loss of consciousness of unspecified duration, initial encounter Fall from ladder Qualifiers: Encounter type: initial encounter Qualified Code(s): W11.XXXA - Fall on and from ladder, initial encounter Condition: Serious Critical Care Time: Yes Critical Care Time(excluding separately billable procedures): Critical 30-74 mins Referrals: ANTONELLA GONZALEZ [Primary Care Provider] - Follow up/PCP as directed
[2021-08-24] MEDS ORDERED: SUBLIMAZE 100 MCG/2 ML IV ONE (17:43)
[2021-08-24] MEDS ORDERED: SUBLIMAZE 100 MCG/2 ML ONE (17:45)
[2021-08-24 18:46] VITALS: BP 201/103; PULSE 67; O2SAT 98
--- NOTE | 2021-08-24 19:17 | XRAY ---
Indication: Pain following 12 foot fall off ladder. Multiple contiguous axial images obtained through the head without contrast. Comparison: April 02, 2014. New right frontal parietal subdural hematoma measuring up to 7 mm in thickness and at least 5 cm in CC dimension. Smaller left parietal subdural hematoma near the vertex at least 5 mm in thickness and 2 cm in cc dimension. Interhemispheric fissure demonstrates multifocal tiny subarachnoid hemorrhages 1-2 mm in thickness. Left basal ganglia demonstrates 6 mm round hyperdensity, probable acute parenchymal hemorrhage. No mass effect or hydrocephalus. Bony calvarium demonstrates nondepressed right occipital fracture. Visualized paranasal sinuses and mastoid air cells are clear. Impression: 1. Small bilateral acute subdural hematomas, interhemispheric fissure acute subarachnoid hemorrhages, and tiny left basal ganglia acute parenchymal hemorrhage. No mass effect or hydrocephalus. 2. Nondepressed right occipital fracture. Comment: Preliminary interpretation made by C. No critical discrepancy.
--- NOTE | 2021-08-24 19:19 | XRAY ---
Indication: Pain following 12 foot fall off ladder. Multiple contiguous axial images obtained through the cervical spine. Sagittal and coronal reformatted images obtained. Comparison: None. CT head and CT chest reported separately. Axial images negative for acute fracture, suspicious bony lesions, or spinal canal stenosis. Minimal C4-C7 degenerative endplate spurring. Sagittal and coronal reformatted images them as is normal alignment. Mild C5-C6 disc space narrowing. No acute compression fracture, subluxation, or jumped facet. Normal appearing craniocervical junction. Visualized noncontrasted soft tissues unremarkable. Impression: 1. Negative acute fracture/subluxation. 2. Mild multilevel degenerative changes. Comment: Preliminary interpretation made by [facility]. No critical discrepancy.
--- NOTE | 2021-08-24 19:23 | XRAY ---
Indication: Pain following 12 foot fall off ladder. Multiple contiguous axial images obtained through the chest without contrast. Comparison: None. Lungs demonstrates mild bilateral dependent atelectasis. No suspicious pulmonary mass, infiltrate, effusion, or pneumothorax. Heart not enlarged. Aorta mildly arteriosclerotic without aneurysm. [place] subcarinal and small left hilar calcified nodes. No pathologic mediastinal lymphadenopathy. Bony thorax demonstrates nondisplaced lateral right 4-5, posterior right 8-9, and left lateral 4-6 rib fractures. Mild degenerative changes throughout the spine. CT abdomen/pelvis reported separately. Impression: 1. Nondisplaced bilateral rib fractures without hemothorax or pneumothorax. 2. Incidental old granulomatous disease. 3. Remaining CT chest without contrast exam is negative. Comment: Preliminary interpretation made by [facility]. No critical discrepancy.
--- NOTE | 2021-08-25 08:49 | XRAY ---
Indication: Pain following 12 foot fall off ladder. Multiple contiguous axial images obtained through the abdomen and pelvis without contrast. Comparison: May 30, 2017. CT chest reported separately. Noncontrasted stomach and bowel loops nonobstructed. There has been interval appendectomy. Again scattered colonic diverticulosis without diverticulitis. No free fluid/air. Remaining liver, gallbladder, pancreas, spleen, adrenal glands, kidneys, ureters, and bladder are unremarkable for noncontrast exam. There remains mild scattered aortoiliac calcifications without AAA. Osseous structures intact again with mild degenerative changes throughout the spine. Impression: 1. Again colonic diverticulosis and chronic bony findings. 2. Remaining CT abdomen/pelvis without contrast exam is negative. Comment: Preliminary interpretation made by C. No critical discrepancy.
== END 2021-08-24 19:45 | disposition short-term general hospital (02) ==
LOC: ED 16:22
DX: S02.119A Unspecified fracture of occiput, initial encounter for closed fracture (principal); S06.6X1A Traumatic subarachnoid hemorrhage with loss of consciousness of 30 minutes or less, initial encounter; S06.5X1A Traumatic subdural hemorrhage with loss of consciousness of 30 minutes or less, initial encounter; S22.43XA Multiple fractures of ribs, bilateral, initial encounter for closed fracture; W11.XXXA Fall on and from ladder, initial encounter; R42 Dizziness and giddiness; R41.0 Disorientation, unspecified; I10 Essential (primary) hypertension; Z72.0 Tobacco use; Z79.899 Other long term (current) drug therapy
CPT/HCPCS: 36000; 36415; 70450; 71250; 72125; 74150; 74176; 80053; 85025; 96374; 99285; 99291; J3010